=== PATIENT | male | born 1945 | race Hispanic/Latino ===

== ENCOUNTER 2019-04-01 18:15 | Emergency (ER) | payer OTHER ==
[~2019-04-01] VITALS: Ht 167.6 cm; Wt 96.6 kg
[2019-04-01] MEDS ORDERED: SODIUM CHLORIDE 0.9% 1000ML 1,000 ML IV STA (18:34)
[2019-04-01] MEDS ORDERED: ACETAMINOPHEN 325 MG TAB PO ONE (18:45)
[2019-04-01] MEDS ORDERED: IBUPROFEN 400 MG TAB PO ONE (18:45)
[2019-04-01] MEDS ORDERED: IBUPROFEN 200 MG TAB ONE (18:56)
[2019-04-01] MEDS ORDERED: SODIUM CHLORIDE 0.9% 1000ML 1,000 ML ONE (18:57)
[2019-04-01] MEDS ORDERED: ACETAMINOPHEN 325 MG TAB ONE (18:57)
--- NOTE | 2019-04-01 18:59 | NUR ---
REPORT TO EDVIN HERNANDEZ ALL QUESTIONS ANSWERED
--- NOTE | 2019-04-01 19:44 | Diagnostic Imaging Report ---
EXAMINATION: CXR 2 VIEW - HOPD INDICATION: ^[id number] ^[id number] COMPARISON: None FINDINGS: PA and lateral views TUBES and LINES: None. LUNGS: Lungs are well inflated. Mild right basilar haziness, silhouetting the right hemidiaphragm. PLEURA: No significant pleural effusion or pneumothorax. HEART AND MEDIASTINUM: The cardiomediastinal silhouette is unremarkable. BONES AND SOFT TISSUES: No acute osseous lesion. Soft tissues are unremarkable. UPPER ABDOMEN: No free air under the diaphragm. IMPRESSION: Mild right basilar haziness, could represent subsegmental atelectasis versus developing pneumonia in the appropriate clinical context. Signed by: Dr. Raji Montoya MD on 04/01/2019 7:41 PM
[2019-04-01] MEDS ORDERED: ALBUTEROL/IPRATROPIUM 3 ML NEB NEB ONE (20:00)
[2019-04-01] MEDS ORDERED: LEVOFLOXACIN 750MG/D5W 150ML 150 ML IV ONE (20:00)
[2019-04-01] MEDS ORDERED: ALBUTEROL/IPRATROPIUM 3 ML NEB ONE (20:08)
[2019-04-01] MEDS ORDERED: LEVAQUIN500 MG PO (21:59)
[2019-04-01] MEDS ORDERED: PROAIR HFA INH8.5 GM INH (22:01)
[2019-04-01] MEDS ORDERED: MUCINEX DM ER1 EACH PO (22:02)
[2019-04-01 23:19] VITALS: BP 121/58
== END 2019-04-01 22:30 | disposition home or self-care (01) ==
LOC: FSED 18:15
DX: R50.9 Fever, unspecified (principal); R05 Cough; J15.9 Unspecified bacterial pneumonia; B34.9 Viral infection, unspecified; J98.01 Acute bronchospasm; I10 Essential (primary) hypertension; E78.5 Hyperlipidemia, unspecified
CPT/HCPCS: 71046; 80053; 83605; 84484; 85025; 85379; 85610; 87040; 87400; 99284; J7030; 93005

== ENCOUNTER 2019-09-09 13:36 | Emergency (ER) | payer OTHER ==
[~2019-09-09] VITALS: Ht 167.6 cm; Wt 96.6 kg
[~2019-09-09 13:36] MED LIST: LEVAQUIN500 MG PO; MUCINEX DM ER1 EACH PO; PROAIR HFA INH8.5 GM INH
--- OUTSIDE RECORDS SUMMARY | 2019-09-09 13:39 | XMS REPORT ---
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 Allergies, Adverse Reactions, Alerts This patient has no known allergies or adverse reactions. Medications Ordered Medication Name Filled Medication Name Start Date Stop Da te Current Medication? Ordering Clinician Indication Dosage Frequency Signature (SIG) Comments Components Albuterol Sulfate (Proair Hfa Inhaler*) 8.5 Gm Inh Alb uterol Sulfate (Proair Hfa Inhaler*) 8.5 Gm Inh 2019-04-01 00:00:00 Yes Tena Artis Md 2 Every 4 Hours for Cough And Wheezing Guaifenesin/Dextromethorphan (Mucinex Dm Er 600-30 Mg Tablet) 1 Each Tab.er.12h Guaifenesin/Dextromethorphan (Mucinex Dm Er 600-30 Mg Tablet) 1 Each Tab.er.12h 2019-04-01 00:00:00 Yes Tena Artis Md 2 Ev mirian 12 Hours for Cough Levofloxacin (Levaquin) 500 Mg Tablet Levofloxacin (Levaquin ) 500 Mg Tablet 2019-04-01 00:00:00 Yes Tena Artis Md 750 Da janice for For Pneumonia Encounters Start Date/Time End Date/Time Encounter Type Admission Type [facility] Care Department Encounter ID 2019-04-01 18:15:00 2019-04-01 22:30:00 Departed Emergency Room 1 YAZMIN SUSI [facility] [id number] Results Test Description Test Time Test Comments Text Results Atomic Results Result Comments Lactic Acid Level 2019-04-01 20:17:00 Lactic Acid Level (test code = Lactic Acid Level) 1.1 0.5-2.0 CXR 2 VIEW - [id number] 19:39:00 [facility] [address] [place] [address] Patient Name: STEPHANIE GUAJARDO MR #: [id number] : 1945 Age/Sex: 73/M Req #: [id number] Adm Physician: Ordered by: SUSI ARCE MD Report #: [id number] Location: [facility] Room/Bed: Procedure: [id number] HOPD/CXR 2 VIEW - HOPD Exam Date: 04/01/19 Exam Shiraz e: 1914 REPORT STATUS: Signed EX AMINATION: CXR 2 VIEW - HOPD INDICATION: [id number] COMPARISON: None FINDINGS: PA and lateral views TUBES and BRYANT ES: None. LUNGS: Lungs are well inflated. Mild right basilar haziness, s ilhouetting the right hemidiaphragm. PLEURA: No significant pleural effu julio césar or pneumothorax. HEART AND MEDIASTINUM: The cardiomediastinal silhoue tte is unremarkable. BONES AND SOFT TISSUES: No acute osseous lesion. Soft tissues are unremarkable. UPPER ABDOMEN: No free air under the diap hragm. IMPRESSION: Mild right basilar haziness, could represent subs egmental atelectasis versus developing pneumonia in the appropriate clinical c ontext. Signed by: Dr. Raji Moore MD on 04/01/2019 7:41 PM Di ctated By: RAJI MOORE MD 40 COPY TO: SUSI ARCE MD
--- NOTE | 2019-09-09 15:13 | Diagnostic Imaging Report ---
EXAM: US EXREMEITY VEINS UNI-HOPD DATE: 09/09/2019 2:38 PM INDICATION: Right lower extremity pain/swelling COMPARISON: None FINDINGS: Ultrasound examination of the right lower extremity venous system was performed with schwartz scale, Doppler Doppler, spectral interrogation. The right common femoral, superficial femoral, and popliteal veins are patent. These vessels demonstrate normal compression and response to augmentation maneuvers. Incidentally noted is a 3.8 x 1.7 x 1.8 cm cystic lesion identified within the right popliteal fossa which contains internal echoes. IMPRESSION: No evidence for right lower extremity DVT. 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 Signed by: Dr. Geoffrey Aaron MD on 09/09/2019 3:09 PM
--- NOTE | 2019-09-09 16:31 | NUR ---
right leg wrapped from midthigh to midfoot, teaching given to patient on how to use kirk wrap and to rewrap his leg daily. pt verbalized understanding.
[2019-09-09] MEDS ORDERED: NAPROXEN500 MG PO (16:33)
[2019-09-09] MEDS ORDERED: ULTRAM50 MG PO (16:36)
[2019-09-09 17:04] VITALS: BP 124/72
== END 2019-09-09 17:13 | disposition home or self-care (01) ==
LOC: FSED 13:36
DX: M79.661 Pain in right lower leg (principal); R25.2 Cramp and spasm; M25.561 Pain in right knee; M66.0 Rupture of popliteal cyst; I83.11 Varicose veins of right lower extremity with inflammation; I87.1 Compression of vein; I10 Essential (primary) hypertension
CPT/HCPCS: 80053; 81003; 85025; 93971; 99283